=== PATIENT | female | born 1955 | race Caucasian/White ===

== ENCOUNTER → 2016-12-12 | Outpatient (CLI) | payer BC ==
[~2016-12-12] MED LIST: CALCIUM 500500 M1 PO; HCTZ12.5TAB PO; MULTIPLE VITAMI1 TA2 PO; NATURAL E400 IU PO; NORCO 325 MG-51 TAB PO; OMEGA-3 FISH1200 MG PO; POTASSIUM GLUC595 MG PO
== END ==
LOC: MC.RAD 13:06
DX: N61.0 Mastitis without abscess (principal); R92.8 Other abnormal and inconclusive findings on diagnostic imaging of breast; Z98.890 Other specified postprocedural states

== ENCOUNTER → 2017-02-24 | Outpatient (CLI) | payer BC | LOC: MC.RAD 13:46 | DX: Z12.31 Encounter for screening mammogram for malignant neoplasm of breast (principal); Z98.890 Other specified postprocedural states ==

== ENCOUNTER 2018-04-13 12:52 | Day surgery (SDC) | payer BC ==
[~2018-04-13] VITALS: Ht 165.1 cm; Wt 55.5 kg
[2018-04-13 13:22] VITALS: BP 112/81; PULSE 70; TEMP 98.7
[2018-04-13] MEDS ORDERED: TAMOXIFEN CITRA20 MG PO (13:24)
[2018-04-13] MEDS ORDERED: FOSAMAX 70MG TA70 MG PO (13:24)
[2018-04-13 14:20] VITALS: BP 103/66; PULSE 62; TEMP 98.1
--- NOTE | 2018-04-13 14:20 | NUR ---
Pt to [facility] via cart from [facility]. Pt drowsy, but awake. Ambulates to recliner with stand by assitance. Warm blanket given. Tea and toast given per pt request. Will continue to monitor. Call light within reach.
[2018-04-13 14:35] VITALS: BP 111/67; PULSE 56
--- NOTE | 2018-04-13 14:35 | NUR ---
Pt continues to rest. Denies needs. Call light within reach.
[2018-04-13 14:50] VITALS: BP 109/64; PULSE 56
--- NOTE | 2018-04-13 14:50 | NUR ---
Pt resting. Tolerating food and fluids without difficulties. Call light within reach.
[2018-04-13 15:05] VITALS: BP 121/68; PULSE 55
--- NOTE | 2018-04-13 15:05 | NUR ---
Discharge instructions reviewed. Pt voices understanding. IV site discontinued with all parts intact. Pt up to dress. Call light within reach.
--- NOTE | 2018-04-13 15:15 | NUR ---
Pt escorted to private car via wheel chair. Pt accompanied home by her son.
== END 2018-04-13 15:15 | disposition home or self-care (01) ==
LOC: SDCO 12:52
DX: Z12.11 Encounter for screening for malignant neoplasm of colon (principal); K57.30 Diverticulosis of large intestine without perforation or abscess without bleeding; Z85.3 Personal history of malignant neoplasm of breast; Z79.899 Other long term (current) drug therapy
CPT/HCPCS: J2250; J2405; J3010; J7030

== ENCOUNTER → 2018-04-24 | Outpatient (CLI) | payer BC ==
[~2018-04-24] MED LIST changes: +FOSAMAX 70MG TA70 MG PO; +TAMOXIFEN CITRA20 MG PO
== END ==
LOC: MC.RAD 13:39
DX: Z12.31 Encounter for screening mammogram for malignant neoplasm of breast (principal); Z98.890 Other specified postprocedural states; Z98.82 Breast implant status

== ENCOUNTER → 2019-05-07 | Outpatient (CLI) | payer BC | LOC: MC.RAD 14:15 | DX: Z12.31 Encounter for screening mammogram for malignant neoplasm of breast (principal); R92.0 Mammographic microcalcification found on diagnostic imaging of breast ==

== ENCOUNTER → 2019-05-12 | Outpatient (CLI) | payer BC | LOC: MC.RAD 13:45 | DX: C50.912 Malignant neoplasm of unspecified site of left female breast (principal) ==

== ENCOUNTER → 2019-11-10 | Outpatient (CLI) | payer BC | LOC: MC.RAD 12:52 | DX: R92.0 Mammographic microcalcification found on diagnostic imaging of breast (principal) ==

== ENCOUNTER → 2019-11-17 | Outpatient (CLI) | payer BC | LOC: MC.RAD 08:19 | DX: N60.42 Mammary duct ectasia of left breast (principal); R92.0 Mammographic microcalcification found on diagnostic imaging of breast; Z98.890 Other specified postprocedural states; Z98.82 Breast implant status; Z85.3 Personal history of malignant neoplasm of breast | CPT/HCPCS: 30634 ==

== ENCOUNTER → 2020-05-16 | Outpatient (CLI) | payer BC | LOC: MC.RAD 10:42 | DX: Z12.31 Encounter for screening mammogram for malignant neoplasm of breast (principal); Z85.3 Personal history of malignant neoplasm of breast; Z98.890 Other specified postprocedural states; Z98.82 Breast implant status ==

== ENCOUNTER → 2021-06-01 | Outpatient (CLI) | payer BC | LOC: MC.RAD 14:11 | DX: Z12.31 Encounter for screening mammogram for malignant neoplasm of breast (principal) ==

== ENCOUNTER → 2023-07-23 | Outpatient (CLI) | payer BC | LOC: MC.RAD 07:17 | DX: Z12.31 Encounter for screening mammogram for malignant neoplasm of breast (principal) ==